=== PATIENT | female | born 2000 | race Caucasian/White ===

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

== ENCOUNTER 2023-09-26 09:06 | Emergency (ER) | payer BC, OTHER ==
[2023-09-26 09:26] VITALS: TEMP 98.7
--- NOTE | 2023-09-26 10:01 | ED ---
Chest Pain HPI - General Chief Complaint: Chest Pain Stated Complaint: Chest Pain Time Seen by Provider: 09/26/23 09:19 Source: patient Mode of arrival: ambulatory Limitations: no limitations - History of Present Illness Initial Comments: 23-year-old female with history of tricuspid regurgitation and inappropriate sinus syndrome presenting with chest pain for 3 hours. States she woke up from her sleep this morning with stabbing pain in the center of her chest. States the pain is improved with lying flat and worsened with movement. The pain does not radiate and patient states she is not currently experiencing pain. Denies palpitations, URI symptoms, nausea, vomiting, fever. She states she has had this pain before and workups were normal. She saw her gear lapper 6 months ago where they performed an echocardiogram which revealed the tricuspid regurgitation. She is currently taking metoprolol. - Related Data Home Medications Medication Instructions Recorded Confirmed Albuterol Inhaler [Ventolin Hfa 2 puff INHALATION RT-Q6H PRN 09/01/16 09/01/16 Inhaler] Montelukast [Singulair] 10 mg PO HS 09/01/16 09/01/16 desog-e.estradioL/e.estradioL 1 tab PO DAILY 09/01/16 09/01/16 [Mircette 28 Day Tablet] Allergies Allergy/AdvReac Type Severity Reaction Status Date / Time No Known Allergies Allergy Verified 09/26/23 09:15 Review of Systems ROS Statement: Those systems with pertinent positive or pertinent negative responses have been documented in the HPI. ROS Other: All systems not noted in ROS Statement are negative. EKG Findings - EKG Comments: EKG Findings:: Normal sinus rhythm with inverted T waves in V1 through V3. Vent rate 87 bpm. RI interval 152. QRS duration 86. QT/QTc 351/396. Past Medical History Past Medical History: No Reported History History of Any Multi-Drug Resistant Organisms: None Reported Past Surgical History: No Surgical Hx Reported Past Psychological History: No Psychological Hx Reported Smoking Status: Never smoker Past Alcohol Use History: None Reported Past Drug Use History: None Reported General Exam Limitations: no limitations General appearance: alert, in no apparent distress Respiratory exam: Present: normal lung sounds bilaterally, chest wall tenderness (Positive costochondral tenderness. No skin changes or bruising.). Absent: respiratory distress, wheezes, rales, rhonchi, stridor Cardiovascular Exam: Present: regular rate, normal rhythm, normal heart sounds. Absent: systolic murmur, diastolic murmur, rubs, gallop, clicks GI/Abdominal exam: Present: soft, normal bowel sounds. Absent: distended, tenderness, guarding, rebound, rigid Course Vital Signs 09/26/23 09/26/23 09:13 11:17 Temperature 98.7 F Pulse Rate 87 71 Respiratory 20 14 Rate Blood Pressure 126/84 107/73 O2 Sat by Pulse 99 97 Oximetry Chest Pain MDM - MDM Was pt. sent in by a medical professional or institution (, ISRA, CONE EXAMINER, urgent care, hospital, or alf...) When possible be specific @ -[No] Did you speak to anyone other than the patient for history (EMS, parent, family, police, friend...)? What history was obtained from this source @ -[No] Did you review nursing and triage notes (agree or disagree)? Why? @ -[I reviewed and agree with nursing and triage notes] Were old charts reviewed (outside hosp., previous admission, EMS record, old EKG, old radiological studies, urgent care reports/EKG's, alf records)? Report findings @ -[No old charts were reviewed] Differential Diagnosis (chest pain, altered mental status, abdominal pain women, abdominal pain men, vaginal bleeding, weakness, fever, dyspnea, syncope, headache, dizziness, GI bleed, back pain, seizure, CVA, palpatations, mental health, musculoskeletal)? @ -costochondritis, ACS, infectious pneumonia, pneumothorax EKG interpreted by me (3pts min.). @ -Normal sinus rhythm with inverted T waves in V1 through V3 X-rays interpreted by me (1pt min.). @ -chest x-ray reveals no acute process CT interpreted by me (1pt min.). @ -[None done] U/S interpreted by me (1pt. min.). @ -[None done] What testing was considered but not performed or refused? (CT, X-rays, U/S, labs)? Why? @ -[None] What meds were considered but not given or refused? Why? @ -[None] Did you discuss the management of the patient with other professionals (professionals i.e. , ISRA, CONE EXAMINER, lab, RT, psych nurse, social director, visual training aide, teacher, guest services officer, assistant case manager)? Give summary @ -[No] Was smoking cessation discussed for >3mins.? @ -[No] Was critical care preformed (if so, how long)? @ -[No] Were there social determinants of health that impacted care today? How? (Homelessness, low income, unemployed, alcoholism, drug addiction, transportation, low edu. Level, literacy, decrease access to med. care, [facility], rehab)? @ -[No] Was there de-escalation of care discussed even if they declined (Discuss DNR or withdrawal of care, Hospice)? DNR status @ -[No] What co-morbidities impacted this encounter? (DM, HTN, Smoking, COPD, CAD, Cancer, CVA, ARF, Chemo, Hep., AIDS, mental health diagnosis, sleep apnea, morbid obesity)? @ -[None] Was patient admitted / discharged? Hospital course, mention meds given and route, prescriptions, significant lab abnormalities, going to OR and other pertinent info. @ -Patient was seen for acute chest pain. Pain was reproducible upon examin ation. EKG revealed normal sinus rhythm with inverted T waves in V1 through V3. Chest x-ray reveals no acute process. CBC, CMP, troponin and TSH were unremarkable. Patient discharged in stable condition. Undiagnosed new problem with uncertain prognosis? @ -[No] Drug Therapy requiring intensive monitoring for toxicity (Heparin, Nitro, Insulin, Cardizem)? @ -[No] Were any procedures done? @ -[No] Diagnosis/symptom? @ -Acute costochondritis Acute, or Chronic, or Acute on Chronic? @ -Acute Uncomplicated (without systemic symptoms) or Complicated (systemic symptoms)? @ -Uncomplicated Side effects of treatment? @ -[No] Exacerbation, Progression, or Severe Exacerbation? @ -[No] Poses a threat to life or bodily function? How? (Chest pain, [place], [place], pneumonia, PE, COPD, DKA, ARF, appy, cholecystitis, CVA, Diverticulitis, Homicidal, Suicidal, threat to staff... and all critical care pts) @ -[No] Disposition Clinical Impression: Costochondritis Disposition: HOME SELF-CARE Condition: Stable Instructions (If sedation given, give patient instructions): Costochondritis (ED) Is patient prescribed a controlled substance at d/c from ED?: No Referrals: Vani Christopher [Primary Care Provider] - 1-2 days
--- NOTE | 2023-09-26 10:29 | XR ---
EXAMINATION TYPE: XR chest 2V DATE OF EXAM: 09/26/2023 COMPARISON: 10/07/2008 HISTORY: Chest pain TECHNIQUE: Frontal and lateral views of the chest are obtained. FINDINGS: There is no focal air space opacity. No evidence for pneumothorax. No pleural effusion. The cardiac silhouette size is within normal limits. The osseous structures are grossly intact. IMPRESSION: 1. No acute cardiopulmonary process.
[2023-09-26 10:58] LABS: Basophils % (A) 0 %; Eosinophils # (A) 0.1 k/uL (0-0.7); Eosinophils % (A) 1 %; HCT 41.1 % (34.0-46.0); HGB 13.4 gm/dL (11.4-16.0); Lymphocytes # (A) 2.7 k/uL (1.0-4.8); Lymphocytes % (A) 29 %; MCH 29.1 pg (25.0-35.0); MCHC 32.7 g/dL (31.0-37.0); MCV 89.2 fL (80.0-100.0); Mean Platelet Volume 8.4; Monocytes # (A) 0.6 k/uL (0-1.0); Monocytes % (A) 7 %; Neutrophils # (A) 5.7 k/uL (1.3-7.7); Neutrophils % (A) 61 %; Platelet Count 251 k/uL (150-450); RBC 4.61 m/uL (3.80-5.40); WBC 9.4 k/uL (3.8-10.6)
[2023-09-26 11:12] LABS: ALT 19 U/L (4-34); AST 21 U/L (14-36); African American GFR (CKD) >90 (>60 ml/min/1.73 sqM); Alkaline Phosphatase 70 U/L (38-126); Anion Gap 9 mmol/L; Blood Urea Nitrogen 17 mg/dL (7-17); Calcium 8.9 mg/dL (8.4-10.2); Carbon Dioxide 21 mmol/L (22-30); Chloride 109 mmol/L (98-107); Glucose 84 mg/dL (74-99); Non-African American GFR(CKD) >90 (>60 ml/min/1.73 sqM); Potassium 4.3 mmol/L (3.5-5.1); Sodium 139 mmol/L (137-145); Total Bilirubin 0.5 mg/dL (0.2-1.3); Total Protein 6.7 g/dL (6.3-8.2)
[2023-09-26 13:01] VITALS: BP 115/75; PULSE 65; RESP 18
== END 2023-09-26 12:31 | disposition home or self-care (01) ==
LOC: EC 09:06
DX: M94.0 Chondrocostal junction syndrome [Tietze] (principal)
CPT/HCPCS: 36415; 71046; 80053; 84443; 84484; 85025; 93005; 99285

== ENCOUNTER 2023-12-29 18:09 | Emergency (ER) | payer BC ==
--- NOTE | 2023-12-29 18:47 | XR ---
EXAMINATION TYPE: XR chest 2V DATE OF EXAM: 12/29/2023 6:32 PM CLINICAL INDICATION:Female, 23 years old with history of cough; COMPARISON: 09/26/2023 TECHNIQUE: XR chest 2V Frontal view of the chest. FINDINGS: Lungs/Pleura: There is no evidence of pleural effusion, focal consolidation, or pneumothorax. Pulmonary vascularity: Unremarkable. Heart/mediastinum: Cardiomediastinal silhouette is unremarkable. Musculoskeletal: No acute osseous pathology. Other findings: None IMPRESSION: No acute cardiopulmonary disease/process.
--- NOTE | 2023-12-29 19:24 | ED ---
URI HPI - General Chief Complaint: Upper Respiratory Infection Stated Complaint: sore throat, chest pain Time Seen by Provider: 12/29/23 19:09 Source: patient Mode of arrival: ambulatory Limitations: no limitations - History of Present Illness Initial Comments: 23-year-old female presenting with chief complaint of cough. Symptoms have been ongoing for about a week. She admits to throat irritation which she presumes is from the coughing. Admits to nasal congestion. She has difficulty catching her breath at times. No chest pain. No nausea, vomiting, abdominal pain. She did have some diarrhea. She is currently on Augmentin for an ear infection and prednisone. Her prednisone dose is 10 mg twice a day for 5 days, she has been taking this for about 2 days. No fever. - Related Data Home Medications Medication Instructions Recorded Confirmed Kariva 1 tab PO HS 09/26/23 09/26/23 Metoprolol Succinate (ER) [Toprol 25 mg PO HS 09/26/23 09/26/23 Xl] Rimegepant Sulfate [Nurtec Odt] 75 mg PO MOWEFR 09/26/23 09/26/23 Sertraline [Zoloft] 150 mg PO DAILY 09/26/23 09/26/23 traZODone HCL [Desyrel] 50 mg PO HS PRN 09/26/23 09/26/23 Previous Rx's Medication Instructions Recorded Benzonatate [Tessalon Perles] 100 mg PO TID PRN #9 capsule 12/29/23 predniSONE 50 mg PO DAILY 4 Days #4 tab 12/29/23 Allergies Allergy/AdvReac Type Severity Reaction Status Date / Time No Known Allergies Allergy Verified 12/29/23 18:15 Review of Systems ROS Statement: Those systems with pertinent positive or pertinent negative responses have been documented in the HPI. ROS Other: All systems not noted in ROS Statement are negative. Past Medical History Past Medical History: No Reported History Additional Past Medical History / Comment(s): tachycardia, History of Any Multi-Drug Resistant Organisms: None Reported Past Surgical History: No Surgical Hx Reported Additional Past Surgical History / Comment(s): wisdom teeth Past Psychological History: Anxiety, Depression Smoking Status: Never smoker Past Alcohol Use History: Occasional Past Drug Use History: None Reported General Exam Limitations: no limitations General appearance: alert, in no apparent distress Head exam: Present: atraumatic, normocephalic Eye exam: Present: normal appearance, EOMI ENT exam: Present: normal exam, normal oropharynx, mucous membranes moist, TM's normal bilaterally Neck exam: Present: normal inspection. Absent: meningismus Respiratory exam: Present: normal lung sounds bilaterally. Absent: respiratory distress, wheezes, rales, rhonchi, stridor Cardiovascular Exam: Present: regular rate, normal rhythm, normal heart sounds. Absent: systolic murmur, diastolic murmur, rubs, gallop, clicks Extremities exam: Absent: pedal edema Neurological exam: Present: alert, oriented X3 Psychiatric exam: Present: normal affect, normal mood Skin exam: Present: warm, dry Course Vital Signs 12/29/23 12/29/23 18:12 19:35 Temperature 97.7 F 97.9 F Pulse Rate 98 94 Respiratory 18 22 Rate Blood Pressure 129/89 118/78 O2 Sat by Pulse 96 98 Oximetry Medical Decision Making - Medical Decision Making Was pt. sent in by a medical professional or institution (, PA, EDGE BANDER OPERATOR, urgent care, hospital, or care home...) When possible be specific @ -No Did you speak to anyone other than the patient for history (EMS, parent, family, police, friend...)? What history was obtained from this source @ -No Did you review nursing and triage notes (agree or disagree)? Why? @ -I reviewed and agree with nursing and triage notes Were old charts reviewed (outside hosp., previous admission, EMS record, old EKG, old radiological studies, urgent care reports/EKG's, care home records)? Report findings @ -No old charts were reviewed Differential Diagnosis (chest pain, altered mental status, abdominal pain women, abdominal pain men, vaginal bleeding, weakness, fever, dyspnea, syncope, headache, dizziness, GI bleed, back pain, seizure, CVA, palpatations, mental health, musculoskeletal)? @ -Differential includes influenza, RSV, COVID, group A strep, pneumonia, bronchitis, sinusitis, this is not an all-inclusive list EKG interpreted by me (3pts min.). @ -As above X-rays interpreted by me (1pt min.). @ -Chest x-ray shows no acute cardiopulmonary process CT interpreted by me (1pt min.). @ -None done U/S interpreted by me (1pt. min.). @ -None done What testing was considered but not performed or refused? (CT, X-rays, U/S, labs)? Why? @ -None What meds were considered but not given or refused? Why? @ -None Did you discuss the management of the patient with other professionals (professionals i.e. , PA, EDGE BANDER OPERATOR, lab, RT, psych nurse, social studies department chair, slot floorman, teacher, building drafting officer, nurse case management)? Give summary @ -No Was smoking cessation discussed for >3mins.? @ -No Was critical care preformed (if so, how long)? @ -No Were there social determinants of health that impacted care today? How? (Homelessness, low income, unemployed, alcoholism, drug addiction, transportation, low edu. Level, literacy, decrease access to med. care, snf, rehab)? @ -No Was there de-escalation of care discussed even if they declined (Discuss DNR or withdrawal of care, Hospice)? DNR status @ -No What co-morbidities impacted this encounter? (DM, HTN, Smoking, COPD, CAD, Cancer, CVA, ARF, Chemo, Hep., AIDS, mental health diagnosis, sleep apnea, morbid obesity)? @ -None Was patient admitted / discharged? Hospital course, mention meds given and route, prescriptions, significant lab abnormalities, going to OR and other pertinent info. @ -23-year-old female presenting with chief complaint of cough. Workup is initiated by triage. She is negative for influenza, RSV, COVID, group A strep. Chest x-ray shows no acute cardiopulmonary process. I later bring the patient to a hallway bed for examination. Heart and lungs are clear to auscultation. No lower extremity swelling. Normal HEENT exam. Patient tells me that she is currently taking prednisone 10 mg twice a day. I increased her dose to 50 mg/day. She can continue taking her Augmentin as prescribed. She is educated on today's findings. Discharged. Follow-up with PCP. Report back to ER with any new or worsening symptoms. Discussed return parameters and answered all questions. Patient conveyed verbal understanding and agreed to the plan. I discussed this case in detail with my attending Dr. Timmons Undiagnosed new problem with uncertain prognosis? @ -No Drug Therapy requiring intensive monitoring for toxicity (Heparin, Nitro, Insulin, Cardizem)? @ -No Were any procedures done? @ -No Diagnosis/symptom? @ -Bronchitis Acute, or Chronic, or Acute on Chronic? @ -Acute Uncomplicated (without systemic symptoms) or Complicated (systemic symptoms)? @ -Uncomplicated Side effects of treatment? @ -No Exacerbation, Progression, or Severe Exacerbation? @ -No Poses a threat to life or bodily function? How? (Chest pain, [place], [place], pneumonia, PE, COPD, DKA, ARF, appy, cholecystitis, CVA, Diverticulitis, Homicidal, Suicidal, threat to staff... and all critical care pts) @ -Unlikely - Lab Data Lab Results 12/29/23 12/29/23 Range/Units 18:17 18:17 Influenza Type A (PCR) Not Detected (Not Detectd) Influenza Type B (PCR) Not Detected (Not Detectd) RSV (PCR) Not Detected (Not Detectd) SARS-CoV-2 (PCR) Not Detected (Not Detectd) Group A Strep (PCR) NOT DETECTED (Not Detectd) Disposition Clinical Impression: Bronchitis Disposition: HOME SELF-CARE Condition: Good Instructions (If sedation given, give patient instructions): Acute Bronchitis (ED) Additional Instructions: Follow up with PCP. Report back to ER with any new or worsening symptoms Prescriptions: predniSONE 50 mg PO DAILY 4 Days #4 tab Benzonatate [Tessalon Perles] 100 mg PO TID PRN #9 capsule PRN Reason: Cough Is patient prescribed a controlled substance at d/c from ED?: No Referrals: Vani Christopher [Primary Care Provider] - 1-2 days Time of Disposition: 19:24
[2023-12-29 19:54] VITALS: BP 118/78; PULSE 94; RESP 22; TEMP 97.9
== END 2023-12-29 19:49 | disposition home or self-care (01) ==
LOC: EC 18:09
DX: J40 Bronchitis, not specified as acute or chronic (principal)
CPT/HCPCS: 71046; 87636; 87651; 93005; 99285

== ENCOUNTER 2024-07-05 07:09 | Day surgery (SDC) | payer BC ==
[2024-07-05] MEDS ORDERED: SODIUM CHLORIDE 0.9% 1,000 ML IV SCH (07:35)
[2024-07-05 08:10] VITALS: RESP 16; TEMP 97.8
[2024-07-05] MEDS: SODIUM CHLORIDE 0.9% 500 ML 500 ML IV ONE (08:35)
--- NOTE | 2024-07-05 11:06 | P.EPPROC ---
- EP Procedure Note Electrophysiology Procedure Note: Diagnosis Recurrent presyncope Twelve-lead EKG Sinus mechanism normal RI narrow QRS normal ST segments normal QT interval Tilt table test Baseline blood pressure 125/76 mmHg baseline heart rate 92 beats a minute Patient was tilted upright on maculas 70 degrees per protocol There was no significant change in blood pressure. There was an increase in heart rate by about 10-20 beats Patient felt a little blurry and lightheaded. No syncope was noted when she was laid supine her heart rate went down to 74 beats a minute Impression Normal twelve-lead EKG Mild orthostatic intolerance without any secondary neurocardiogenic syncope
--- NOTE | 2024-07-05 15:01 | P.EPPROC ---
- EP Procedure Note Electrophysiology Procedure Note: Diagnosis Recurrent presyncope Twelve-lead EKG shows sinus mechanism normal NM narrow QRS normal cardiac intervals normal QT interval Tilt table test per protocol Baseline blood pressure 118/71 mmHg baseline heart rate 79 beats a minute. Patient was tilted upright at an angle of 70 degrees per protocol There is a mild increase in her heart rate up to about 100 beats a minute in the first 10 minutes Thereafter the heart rates remain between 110 and 120 beats a minute. She felt that vision was blurred and felt lightheaded. She also complained of racing heart Towards the end of the procedure her heart rate increased to 125 beats a minute followed by a drop in blood pressure to 80 mmHg. She got hot nauseous and very lightheaded. She was laid supine and her blood pressure and heart rate normalized Impression Normal twelve-lead EKG Mild orthostatic intolerance followed by secondary neurocardiogenic phenomena
[2024-07-05 19:09] VITALS: BP 112/69; PULSE 82
== END 2024-07-05 10:13 | disposition home or self-care (01) ==
LOC: CATHEP 07:09
PROVIDERS: ATTEND Internal Medicine Clinical Cardiac Electrophysiology
DX: R55 Syncope and collapse (principal); G90.A Postural orthostatic tachycardia syndrome [POTS]; Z79.899 Other long term (current) drug therapy
CPT/HCPCS: 81025; 82533; 84443; 93660

== ENCOUNTER → 2024-08-28 | Outpatient (CLI) | payer BC ==
--- NOTE | 2024-08-28 12:32 | MR ---
EXAMINATION TYPE: MR angio head wo con DATE OF EXAM: 08/28/2024 COMPARISON: NONE HISTORY: Migraines, family history of brain aneurysm. TECHNIQUE: Time of flight images focusing on the [place] were performed without contrast.. 2-D and 3-D postprocessing imaging is performed on independent workstation. FINDINGS: There are codominant vertebral arteries patent to the basilar junction. There are patent bi lateral posterior communicating arteries. There is no large vessel occlusion or aneurysm in the poste rior circulation. There is small caliber short length anterior communicating artery on image 109. There is no large ves doug occlusion or aneurysm in the anterior circulation. 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 No a neurysm at the level of the [place]. [facility], , 08/28/2024 12:29 PM
== END | disposition home or self-care (01) ==
LOC: RADMRIMAIN 11:29
PROVIDERS: ATTEND Family Medicine
DX: G43.909 Migraine, unspecified, not intractable, without status migrainosus (principal); Z82.0 Family history of epilepsy and other diseases of the nervous system
CPT/HCPCS: 70544

== ENCOUNTER → 2024-09-06 | Outpatient (CLI) | payer BC ==
[2024-09-06 10:17] LABS: Basophils # (A) 0.06 X 10*3/uL (0.00-0.10); Basophils % (A) 0.6 %; Eosinophils # (A) 0.12 X 10*3/uL (0.04-0.35); Eosinophils % (A) 1.3 %; HCT 40.7 % (37.2-46.3); HGB 13.3 g/dL (12.0-15.0); Lymphocytes % (A) 29.9 %; MCH 28.9 pg (27.0-32.0); MCHC 32.7 g/dL (32.0-37.0); MCV 88.5 FL (80.0-97.0); Mean Platelet Volume 11.4 FL (9.5-12.2); Monocytes # (A) 0.84 X 10*3/uL (0.20-1.00); NRBC Per 100 WBC 0 X 10*3/uL (0.00-0.01); Neutrophils # (A) 5.51 X 10*3/uL (1.80-7.70); Neutrophils % (A) 58.9 %; Platelet Count 248 X 10*3/uL (140-440); WBC 9.36 X 10*3/uL (4.50-10.00)
[2024-09-06 11:27] LABS: % Iron Saturation 26.53 (12.00-45.00); ALT 21 U/L (8-44); AST 20 U/L (13-35); Alkaline Phosphatase 59 U/L (41-126); BUN/Creat Ratio 24.17 Ratio (12.00-20.00); Blood Urea Nitrogen 14.5 mg/dL (9.0-27.0); Calcium 8.9 mg/dL (8.7-10.3); Chloride 103 mmol/L (96-109); Chol/HDL Ratio 3.73 Ratio; Ferritin 55.1 ng/mL (10.0-291.0); Globulin 2.1 g/dL (1.6-3.3); Glucose 92 mg/dL (70-110); Iron 104 UG/DL (50-170); LDL Cholesterol,Calculated 123.7 mg/dL (0.0-131.0); Potassium 4.2 mmol/L (3.5-5.5); Sodium 138 mmol/L (135-145); T4, Free (Free Thyroxine) 0.97 ng/dL (0.80-1.80); Total Bilirubin 0.4 mg/dL (0.3-1.2); Total Iron Binding Capacity 392 UG/DL (228-460); Total Protein 6.1 g/dL (6.2-8.2)
[2024-09-06 11:47] LABS: Follicle Stimulating Hormone 6.9 mIU/mL; Luteinizing Hormone 5.9 mIU/mL
== END | disposition home or self-care (01) ==
LOC: LABWHC1 07:18
PROVIDERS: ATTEND Family Medicine
DX: Z13.220 Encounter for screening for lipoid disorders (principal); Z13.1 Encounter for screening for diabetes mellitus; N92.6 Irregular menstruation, unspecified; R53.83 Other fatigue
CPT/HCPCS: 36415; 80053; 80061; 82533; 82670; 82728; 83001; 83002; 83036; 83540; 83550; 84144; 84146; 84402; 84403; 84439; 84443; 84481; 85025

== ENCOUNTER 2024-11-28 06:06 | Emergency (ER) | payer BC ==
--- NOTE | 2024-11-28 07:00 | ED ---
General Adult HPI - General Chief complaint: Nausea/Vomiting/Diarrhea Stated complaint: NVD Time Seen by Provider: 11/28/24 06:15 Source: patient (6), RN notes reviewed Mode of arrival: ambulatory Limitations: no limitations - History of Present Illness Initial comments: 24-year-old female presents emergency department chief complaint of nausea vomiting diarrhea. Patient states initially started a week and started eating out in which she states that she had nausea vomiting states that seemed to resolve and then she developed diarrhea on and off now again nausea and vomiting this morning. Patient denies any fevers or chills no sick contacts no localized abdominal pain no chest pain or shortness of breath. - Related Data Home Medications Medication Instructions Recorded Confirmed Kariva 1 tab PO HS 09/26/23 07/02/24 Rimegepant Sulfate [Nurtec Odt] 75 mg PO DIRECTED PRN 09/26/23 07/05/24 Sertraline [Zoloft] 150 mg PO HS 09/26/23 07/05/24 traZODone HCL [Desyrel] 50 mg PO HS PRN 09/26/23 07/05/24 Previous Rx's Medication Instructions Recorded Ondansetron Odt [Zofran Odt] 4 mg PO Q8HR PRN #10 tab 11/28/24 Allergies Allergy/AdvReac Type Severity Reaction Status Date / Time No Known Allergies Allergy Verified 11/28/24 06:07 Review of Systems ROS Statement: Those systems with pertinent positive or pertinent negative responses have been documented in the HPI. ROS Other: All systems not noted in ROS Statement are negative. Past Medical History Past Medical History: GERD/Reflux, Hyperlipidemia Additional Past Medical History / Comment(s): tachycardia, dizziness , migraines. nausea, cramping, periodic alt constipation and diarrhea none recent. see Dr Marie's H&P. some SOB with exertion. 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 no meds for cholesterol , tendonitis to nereida wrists. pt states she recently weaned off toporl as instructed. History of Any Multi-Drug Resistant Organisms: None Reported Past Surgical History: No Surgical Hx Reported Additional Past Surgical History / Comment(s): wisdom teeth Additional Past Anesthesia/Blood Transfusion Reaction / Comment(s): woke up during wisdom teeth surgery Past Psychological History: Anxiety, Depression Smoking Status: Never smoker - Past Family History Mother Family Medical History: Thyroid Disorder Father Additional Family Medical History / Comment(s): brain aneurysm General Exam Limitations: no limitations General appearance: alert, in no apparent distress Head exam: Present: atraumatic, normocephalic, normal inspection Eye exam: Present: normal appearance, PERRL, EOMI. Absent: scleral icterus, conjunctival injection, periorbital swelling Neck exam: Present: normal inspection, full ROM. Absent: tenderness, meningismus, lymphadenopathy Respiratory exam: Present: normal lung sounds bilaterally. Absent: respiratory distress, wheezes, rales, rhonchi, stridor Cardiovascular Exam: Present: regular rate, normal rhythm, normal heart sounds. Absent: systolic murmur, diastolic murmur, rubs, gallop, clicks GI/Abdominal exam: Present: soft, normal bowel sounds. Absent: distended, tenderness, guarding, rebound, rigid Neurological exam: Present: alert, oriented X3, CN II-XII intact Course Vital Signs 11/28/24 11/28/24 06:07 07:10 Temperature 98.0 F Pulse Rate 98 80 Respiratory 18 16 Rate Blood Pressure 117/85 117/60 O2 Sat by Pulse 98 98 Oximetry Medical Decision Making - Medical Decision Making Was pt. sent in by a medical professional or institution (, PA, ULTIMATE HOOPS TRAINER, urgent care, hospital, or [facility]...) When possible be specific @ -No Did you speak to anyone other than the patient for history (EMS, parent, family, police, friend...)? What history was obtained from this source @ -No Did you review nursing and triage notes (agree or disagree)? Why? @ -I reviewed and agree with nursing and triage notes Were old charts reviewed (outside hosp., previous admission, EMS record, old EKG, old radiological studies, urgent care reports/EKG's, [facility] records)? Report findings @ -No old charts were reviewed Differential Diagnosis (chest pain, altered mental status, abdominal pain women, abdominal pain men, vaginal bleeding, weakness, fever, dyspnea, syncope, headache, dizziness, GI bleed, back pain, seizure, CVA, palpatations, mental health, musculoskeletal)? @ -Differential Abdominal Pain Women: Appendicitis, Cholecystitis, diverticulosis, ischemic bowel, pancreatitis, hepatitis, UTI, gastroenteritis, AAA, incarcerated hernia, bowel obstruction, constipation, inflammatory bowel, hepatitis, peptic ulcer disease, splenic infarction, perforated viscus, vulvitis, ovarian torsion, PID, kidney stone, placenta abruption, this is not meant to be an all-inclusive list EKG interpreted by me (3pts min.). @ -None none X-rays interpreted by me (1pt min.). @ -None done CT interpreted by me (1pt min.). @ -None done U/S interpreted by me (1pt. min.). @ -None done What testing was considered but not performed or refused? (CT, X-rays, U/S, labs)? Why? @ -None What meds were considered but not given or refused? Why? @ -None Did you discuss the management of the patient with other professionals (professionals i.e. , PA, ULTIMATE HOOPS TRAINER, lab, RT, psych nurse, aids social worker, phosphoric acid operator, teacher, revenue officer, case management specialist)? Give summary @ -No Was smoking cessation discussed for >3mins.? @ -No Was critical care preformed (if so, how long)? @ -No Were there social determinants of health that impacted care today? How? (Homelessness, low income, unemployed, alcoholism, drug addiction, transportation, low edu. Level, literacy, decrease access to med. care, group home, rehab)? @ -No Was there de-escalation of care discussed even if they declined (Discuss DNR or withdrawal of care, Hospice)? DNR status @ -No What co-morbidities impacted this encounter? (DM, HTN, Smoking, COPD, CAD, Cancer, CVA, ARF, Chemo, Hep., AIDS, mental health diagnosis, sleep apnea, morbid obesity)? @ -None Was patient admitted / discharged? Hospital course, mention meds given and route, prescriptions, significant lab abnormalities, going to OR and other pertinent info. @ -Discharge patient presented for gastroenteritis type symptoms. Patient feels improved after IV fluids and antidiarrheals. Patient will be discharged in stable condition return parameters discussed. Undiagnosed new problem with uncertain prognosis? @ -No Drug Therapy requiring intensive monitoring for toxicity (Heparin, Nitro, Insulin, Cardizem)? @ -No Were any procedures done? @ -No Diagnosis/symptom? @ -Gastroenteritis Acute, or Chronic, or Acute on Chronic? @ -Acute Uncomplicated (without systemic symptoms) or Complicated (systemic symptoms)? @ -Uncomplicated Side effects of treatment? @ -No Exacerbation, Progression, or Severe Exacerbation? @ -No Poses a threat to life or bodily function? How? (Chest pain, USA, NM, pneumonia, PE, COPD, DKA, ARF, appy, cholecystitis, CVA, Diverticulitis, Homicidal, Suicidal, threat to staff... and all critical care pts) @ -No - Lab Data Result diagrams: 11/28/24 06:11/28/24 06: Lab Results 11/28/24 11/28/24 11/28/24 Range/Units :12 12: 07:00 WBC 11.91 H (4.50-10.00) 10*3/uL RBC 4.55 (4.10-5.20) 10*6/uL Hgb 13.7 (12.0-15.0) g/dL Hct 39.0 (37.2-46.3) % MCV 85.7 (80.0-97.0) fL MCH 30.1 (27.0-32.0) pg MCHC 35.1 (32.0-37.0) g/dL Plt Count 288 (140-440) 10*3/uL MPV 10.5 (9.5-12.2) fL Immature Gran % (Auto) 0.3 % Neutrophils % 66.4 % Lymphocytes % 23.6 % Monocytes % 8.4 % Eosinophils % 0.7 % Basophils % 0.6 % Immature Gran # 0.03 (0.00-0.04) 10*3/uL Neutrophils # 7.92 H (1.80-7.70) 10*3/uL Lymphocytes # 2.81 (0.90-5.00) 10*3/uL Monocytes # 1.00 (0.20-1.00) 10*3/uL Eosinophils # 0.08 (0.04-0.35) 10*3/uL Basophils # 0.07 (0.00-0.10) 10*3/uL Sodium 139 (137-145) mmol/L Potassium 4.0 (3.5-5.1) mmol/L Chloride 110 H (98-107) mmol/L Carbon Dioxide 19 L (22-30) mmol/L Anion Gap 10 mmol/L BUN 14 (7-17) mg/dL Creatinine 0.69 (0.52-1.04) mg/dL Est GFR (CKD-EPI)AfAm >90 (>60 ml/min/1.73 sqM) Est GFR (CKD-EPI)NonAf >90 (>60 ml/min/1.73 sqM) Glucose 103 H (74-99) mg/dL Calcium 9.2 (8.4-10.2) mg/dL Total Bilirubin 0.4 (0.2-1.3) mg/dL AST 22 (14-36) U/L ALT 23 (4-34) U/L Alkaline Phosphatase 59 (38-126) U/L Total Protein 7.1 (6.3-8.2) g/dL Albumin 4.5 (3.5-5.0) g/dL Lipase 105 (23-300) U/L Urine Color Urine Appearance (Clear) Urine pH (5.0-8.0) Ur Specific [place] (1.001-1.035) Urine Protein (Negative) Urine Glucose (UA) (Negative) Urine Ketones (Negative) Urine Blood (Negative) Urine Nitrite (Negative) Urine Bilirubin (Negative) Urine Urobilinogen (<2.0) mg/dL Ur Leukocyte Esterase (Negative) Urine RBC (0-5) /hpf Urine WBC (0-5) /hpf Ur Squamous Epith Cells (0-4) /hpf Urine Bacteria (None) /hpf Urine Mucus (None) /hpf Urine HCG, Qual Not Detected (Not Detectd) 11/28/24 Range/Units 08:40 WBC (4.50-10.00) 10*3/uL RBC (4.10-5.20) 10*6/uL Hgb (12.0-15.0) g/dL Hct (37.2-46.3) % MCV (80.0-97.0) fL MCH (27.0-32.0) pg MCHC (32.0-37.0) g/dL Plt Count (140-440) 10*3/uL MPV (9.5-12.2) fL Immature Gran % (Auto) % Neutrophils % % Lymphocytes % % Monocytes % % Eosinophils % % Basophils % % Immature Gran # (0.00-0.04) 10*3/uL Neutrophils # (1.80-7.70) 10*3/uL Lymphocytes # (0.90-5.00) 10*3/uL Monocytes # (0.20-1.00) 10*3/uL Eosinophils # (0.04-0.35) 10*3/uL Basophils # (0.00-0.10) 10*3/uL Sodium (137-145) mmol/L Potassium (3.5-5.1) mmol/L Chloride (98-107) mmol/L Carbon Dioxide (22-30) mmol/L Anion Gap mmol/L BUN (7-17) mg/dL Creatinine (0.52-1.04) mg/dL Est GFR (CKD-EPI)AfAm (>60 ml/min/1.73 sqM) Est GFR (CKD-EPI)NonAf (>60 ml/min/1.73 sqM) Glucose (74-99) mg/dL Calcium (8.4-10.2) mg/dL Total Bilirubin (0.2-1.3) mg/dL AST (14-36) U/L ALT (4-34) U/L Alkaline Phosphatase (38-126) U/L Total Protein (6.3-8.2) g/dL Albumin (3.5-5.0) g/dL Lipase (23-300) U/L Urine Color Colorless Urine Appearance Clear (Clear) Urine pH 5.5 (5.0-8.0) Ur Specific [place] 1.018 (1.001-1.035) Urine Protein Negative (Negative) Urine Glucose (UA) Negative (Negative) Urine Ketones Negative (Negative) Urine Blood Negative (Negative) Urine Nitrite Negative (Negative) Urine Bilirubin Negative (Negative) Urine Urobilinogen <2.0 (<2.0) mg/dL Ur Leukocyte Esterase Small H (Negative) Urine RBC 1 (0-5) /hpf Urine WBC 5 (0-5) /hpf Ur Squamous Epith Cells 2 (0-4) /hpf Urine Bacteria Moderate H (None) /hpf Urine Mucus Occasional H (None) /hpf Urine HCG, Qual (Not Detectd) Disposition Clinical Impression: Gastroenteritis Disposition: HOME SELF-CARE Condition: Stable Instructions (If sedation given, give patient instructions): Acute Nausea and Vomiting (ED), Acute Diarrhea (ED) Additional Instructions: Please return to the Emergency Department if symptoms worsen or any other concerns. Prescriptions: Ondansetron Odt [Zofran Odt] 4 mg PO Q8HR PRN #10 tab PRN Reason: Nausea Is patient prescribed a controlled substance at d/c from ED?: No Referrals: Chase Ludwig MD [Primary Care Provider] - 1-2 days Time of Disposition: 09:26
[2024-11-28] MEDS: SODIUM CHLORIDE 0.9% 2,000 ML IV STA (07:29)
[2024-11-28 07:39] VITALS: PULSE 80; RESP 16
[2024-11-28 07:44] LABS: Basophils # (A) 0.07 10*3/uL (0.00-0.10); Basophils % (A) 0.6 %; Eosinophils # (A) 0.08 10*3/uL (0.04-0.35); Eosinophils % (A) 0.7 %; HGB 13.7 g/dL (12.0-15.0); Lymphocytes # (A) 2.81 10*3/uL (0.90-5.00); Lymphocytes % (A) 23.6 %; MCH 30.1 pg (27.0-32.0); MCHC 35.1 g/dL (32.0-37.0); MCV 85.7 fL (80.0-97.0); Mean Platelet Volume 10.5 fL (9.5-12.2); Monocytes % (A) 8.4 %; Neutrophils # (A) 7.92 10*3/uL (1.80-7.70); Neutrophils % (A) 66.4 %; Platelet Count 288 10*3/uL (140-440); RBC 4.55 10*6/uL (4.10-5.20); RDW 12.6 % (11.5-14.5); WBC 11.91 10*3/uL (4.50-10.00)
[2024-11-28 08:06] LABS: ALT 23 U/L (4-34); AST 22 U/L (14-36); African American GFR (CKD) >90 (>60 ml/min/1.73 sqM); Albumin 4.5 g/dL (3.5-5.0); Alkaline Phosphatase 59 U/L (38-126); Anion Gap 10 mmol/L; Blood Urea Nitrogen 14 mg/dL (7-17); Calcium 9.2 mg/dL (8.4-10.2); Carbon Dioxide 19 mmol/L (22-30); Chloride 110 mmol/L (98-107); Glucose 103 mg/dL (74-99); Lipase 105 U/L (23-300); Non-African American GFR(CKD) >90 (>60 ml/min/1.73 sqM); Sodium 139 mmol/L (137-145); Total Bilirubin 0.4 mg/dL (0.2-1.3); Total Protein 7.1 g/dL (6.3-8.2)
[2024-11-28] MEDS: DIPHENOX-ATROP 2.5-0.025 MG 1 EACH TAB PO STA (08:23)
[2024-11-28] MEDS: SODIUM CHLORIDE 0.9% 1,000 ML IV ONE (08:24)
[2024-11-28] MEDS: DICYCLOMINE 20 MG TAB PO STA (09:14)
[2024-11-28] MEDS: KETOROLAC 15 MG/ML 1 ML VIAL IVP STA (09:15)
[2024-11-28 09:17] LABS: Appearance,Urine Clear (Clear); Bacteria,Urine Moderate /hpf; Bilirubin,Urine Negative (Negative); Blood,Urine Negative (Negative); Color,Urine Colorless; Glucose,Urine (UA) Negative (Negative); Ketones,Urine Negative (Negative); Leukocyte Esterase,Urine Small (Negative); Mucus,Urine Occasional /hpf; Nitrite,Urine Negative (Negative); PH, Urine 5.5 (5.0-8.0); Protein,Urine Negative (Negative); RBC,Urine 1 /hpf (0-5); Specific Gravity,Urine 1.018 (1.001-1.035); Squamous Epithelial Cell,Urine 2 /hpf (0-4); Urobilinogen,Urine <2.0 mg/dL (<2.0); WBC,Urine 5 /hpf (0-5)
[2024-11-28 10:29] VITALS: BP 115/68; TEMP 98
== END 2024-11-28 10:29 | disposition home or self-care (01) ==
LOC: EC 06:06 → SUPCPDRO 06:06 → EC 10:29
DX: K52.9 Noninfective gastroenteritis and colitis, unspecified (principal)
CPT/HCPCS: 36415; 80053; 83690; 85025; 81001; 81025; 99284; 96374; 96361; J1885